=== PATIENT | male | born 1935 | race Caucasian/White ===

== ENCOUNTER 2019-05-16 11:54 | Emergency (ER) | payer MEDICARE ==
--- NOTE | 2019-05-16 14:10 | ED ---
Neurological HPI - HPI Summary HPI Summary: Pt is a 84 y/o M presenting to the ED with a chief complaint of intermittent numbness/tingling on the R side of his body. He states it is occasional and located on the R side of his face, R neck, R arm, and R hand. It lasts a couple of minutes at a time, and has been happening intermittently for about 2 weeks. Sx worsened by leaning/lying down on his R side. He also notes an area on his L calf that is not pruritic but has spread and is erythematous. He denies pain, headaches, neck pain, weakness of arms or numbness in his legs. 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 - History of Current Complaint Chief Complaint: EDNeurologicalDeficit Stated Complaint: TINGLING RT SIDE OF HEAD/NECK PER PT Time Seen by Provider: 05/16/19 13:52 Hx Obtained From: Patient Onset/Duration: Gradual Onset, Started weeks ago, Still Present Timing: Intermittent Episodes Lasting: - hours Onset Severity: Mild Current Severity: None Pain Intensity: 0 Pain Scale Used: 0-10 Numeric Character: Numbness/Tingling Aggravating: Position Change/Supine to Erect Alleviating: Nothing Associated Signs and Symptoms: Positive: Numbness. Negative: Headache, Neck Pain/Stiffness - Additional Pertinent History Primary Care Physician: ELIZABET - Allergy/Home Medications Allergies/Adverse Reactions: Allergies Allergy/AdvReac Type Severity Reaction Status Date / Time No Known Allergies Allergy Verified 05/12/13 22:11 Home Medications: Home Medications Calcium Carbonate [Calcium] 1,800 mg PO DAILY 05/16/19 [History Confirmed ] Multivitamins/Minerals TAB* [Thera M Plus TAB*] 1 tab PO DAILY 05/16/19 [ History Confirmed 05/16/19] ValACYclovir (*) [Valtrex 1 GM(*)] 2 gm PO ONCE 05/16/19 [History Confirmed ] PMH/Surg Hx/FS Hx/Imm Hx Previously Healthy: Yes Endocrine/Hematology History: Reports: Hx Anticoagulant Therapy Denies: Hx Diabetes Cardiovascular History: Reports: Hx Hypertension Respiratory History: Reports: Other Respiratory Problems/Disorders - hx of PE History: Denies: Hx Renal Disease Sensory History: 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 Opthamlomology History: 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 - Cancer History Cancer Type, Location and Year: 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 - Surgical History Surgery Procedure, Year, and Place: tonsils as a child, two skin cancers removed from nose - Immunization History Date of Tetanus Vaccine: unknown Date of Influenza Vaccine: 2014 Infectious Disease History: No Infectious Disease History: Denies: Traveled Outside the [place] in Last 30 Days - Family History Known Family History: Negative: Diabetes - Social History Alcohol Use: Rare Hx Substance Use: No Substance Use Type: Reports: None Hx Tobacco Use: No Smoking Status (MU): Never Smoked Tobacco Review of Systems Negative: Other - neck pain Positive: Rash Positive: Paresthesia, Numbness. Negative: Headache All Other Systems Reviewed And Are Negative: Yes Physical Exam - Summary Physical Exam Summary: Constitutional: Well-developed, Well-nourished, Alert. (-) Distressed Skin: Warm, Dry, scaling patch to L calf HENT: Normocephalic; Atraumatic Eyes: Conjunctiva normal Neck: Musculoskeletal ROM normal neck. (-) JVD, (-) Nuchal rigidity Cardio: Rhythm regular, rate normal, Heart sounds normal; Intact distal pulses; Radial pulses are 2+ and symmetric. (-) Murmur Pulmonary/Chest wall: Effort normal. (-) Respiratory distress, (-) Wheezes, (-) Rales Abd: Soft. (-) Tenderness, (-) Distension, (-) Guarding, (-) Rebound Musculoskeletal: (-) Edema Lymph: (-) Cervical adenopathy Neuro: Alert, PERRL, Oriented x3, Strength normal, Cranial nerves II-XII are grossly intact. SILT, Strength 5/5 BUE and BLE, (-) Dysmetria, (-) Nystagmus, ambulates w steady gait. Psych: Mood and affect Normal Triage Information Reviewed: Yes Vital Signs On Initial Exam: Initial Vitals Temp Pulse Resp BP Pulse Ox 97.4 F 66 18 190/94 94 05/16/19 11:55 05/16/19 11:55 05/16/19 11:55 05/16/19 11:55 05/16/19 11:55 Vital Signs Reviewed: Yes - Ryder Coma Scale Best Eye Response: 4 - Spontaneous Best Motor Response: 6 - Obeys Commands Best Verbal Response: 5 - Oriented Coma Scale Total: 15 Procedures - Sedation Patient Received Moderate/Deep Sedation with Procedure: No Diagnostics - Vital Signs Vital Signs Temp Pulse Resp BP Pulse Ox 05/16/19 13:30 97.9 F 64 16 155/72 100 05/16/19 11:55 97.4 F 66 18 190/94 94 - Laboratory Result Diagrams: 05/16/19 14:16 05/16/19 14:16 Lab Statement: Any lab studies that have been ordered have been reviewed, and results considered in the medical decision making process. - CT Brain CT CT Interpretation Completed By: Radiologist Summary of CT Findings: No evidence for acute intracranial abnormality. ED physician has reviewed this report. - Ultrasound Carotid US Ultrasound Interpretation Completed By: Radiologist Summary of Ultrasound Findings: THERE IS MILD PLAQUE PRESENT WITHIN THE PROXIMAL INTERNAL CAROTID ARTERIES. NO HEMODYNAMICALLY SIGNIFICANT STENOSIS IS SEEN. ED physician has reviewed this report. Re-Evaluation - Re-Evaluation Second Eval Comment: d/w patient normal head CT and US, plan for f/u w PCP for further workup for peripheral nerve cause, neck imaging if having symptoms Course/Dx - Course Course Of Treatment: 84 y/o male w hx PE on coumadin, HTN who p.w intermittent R facial and arm paresthesias. Physical exam: will neuro exam, sensation intact light touch. 2+ radial pulses. Concern for intracranial process versus subclavian steal We'll check CT brain, ultrasound of carotids. Patient has derm apt next week, suspect rash is fungal, defer treatment to derm. - Diagnoses Provider Diagnoses: Paresthesia Discharge ED - Sign-Out/Discharge Documenting (check all that apply): Patient Departure - Discharge Plan Condition: Stable Disposition: HOME Patient Education Materials: Paresthesia (ED) Referrals: Rosas Awan MD [Primary Care Provider] - Additional Instructions: You were seen in the emergency department for paresthesias. Your head CT and carotid ultrasound were normal. Please follow up with your primary care doctor , for possible further imaging. If any studies were not completed at the time of discharge you will be called with the relevant results. Please follow up with your primary care doctor in next 2-3 days and return to emergency department for worsening paresthesias, numbness or weakness of your arms or legs or concerning symptoms. It was a pleasure taking care of you today. - Billing Disposition and Condition Condition: STABLE Disposition: Home - Attestation Statements Document Initiated by Caronibe: Yes Documenting Scribe: Roxane Quiles Provider For Whom Karen is Documenting (Include Credential): Taylor Garcia MD. Scribe Attestation: I, Roxane Quiles, scribed for Taylor Garcia MD. on 05/17/19 at 0956. Scribe Documentation Reviewed: Yes Provider Attestation: The documentation as recorded by the scribe, Roxane Quiles accurately reflects the service I personally performed and the decisions made by me, Taylor Garcia MD. Status of Scribe Document: Viewed Consult Consult: 1410 - I spoke with Dr. Benitez who recommends obtaining a CTA/vessel imaging to evaluate the subclavian arteries. 1412 - Dr. Mayorga recommends a carotid ultrasound.
[2019-05-16 14:30] LABS: ABS Eosinophils 0.1 10^3/ul (0-0.6); ABS Lymphocytes 1.7 10^3/ul (1.0-4.8); ABS Monocytes 0.6 10^3/ul (0-0.8); ABS Neutrophils 3.8 10^3/ul (1.5-7.7); Eosinophil % 2.3 %; Hematocrit 40 % (42-52); Hemoglobin 13.6 g/dL (14.0-18.0); Mean Corpuscular HGB Conc 34 g/dL (31-36); Mean Corpuscular Hemoglobin 30 pg (27-31); Mean Corpuscular Volume 89 fL (80-94); Mean Platelet Volume 9.8 fL (7.4-10.4); Platelet Count 154 10^3/uL (150-450); Red Blood Count 4.46 10^6 /uL (4.18-5.48); Red Cell Distribution Width 14 % (10-15); White Blood Count 6.3 10^3/uL (3.5-10.8)
[2019-05-16 14:36] LABS: INR 2.12 (0.82-1.09)
[2019-05-16 14:47] LABS: Albumin 3.7 g/dL (3.2-5.2); Albumin/Globulin Ratio 1.3 (1-3); BUN/Creatinine Ratio 13.4 (8-20); Calcium 9.1 mg/dL (8.6-10.3); EGFR African American 89.4 (>60); EGFR Non-African American 73.9 (>60); Globulin 2.8 g/dL (2-4); Potassium 4.1 mmol/L (3.5-5.0); Total Bilirubin 0.5 mg/dL (0.2-1.0); Total Protein 6.5 g/dL (6.4-8.9)
[2019-05-16 17:55] VITALS: BP 176/85
== END 2019-05-16 17:26 | disposition home or self-care (01) ==
LOC: ED 11:54
DX: R20.2 Paresthesia of skin (principal); R21 Rash and other nonspecific skin eruption; R20.0 Anesthesia of skin; I10 Essential (primary) hypertension; Z79.899 Other long term (current) drug therapy; Z79.01 Long term (current) use of anticoagulants
CPT/HCPCS: 36415; 70450; 80053; 85025; 85610; 93880; 99283